=== PATIENT | female | born 1960 | race Hispanic/Latino ===

== ENCOUNTER 2017-09-05 19:47 | Emergency (ER) | payer BC ==
[2017-09-05] MEDS ORDERED: Ondansetron ODT 4 MG TAB ONE (19:59)
[2017-09-05 20:15] LABS: Hemoglobin 13.8 g/dL (12.0-16.0); Mean Corpuscular Hemoglobin 30.7 pg (27.0-31.0); Mean Corpuscular Volume 92.9 fl (81.0-99.0); Mean Platelet Volume 7.4 fL (7.4-10.4); Platelet Count 390 thou/uL (130-400); RBC Distribution Width 12.4 % (11.5-14.5); Red Blood Cell (RBC) Count 4.51 mill/uL (4.20-5.40); White Blood Cell (WBC) Count 14.7 thou/uL (4.8-10.8)
[2017-09-05] MEDS ORDERED: Pantoprazole 40 MG VIAL ONE (20:30)
[2017-09-05 20:34] LABS: Band 2 % (5-11); Eosinophils 1 % (0-10); Lymphocytes 49 % (21-51); MDiff Complete? YES; Monocytes 4 % (0-10); Neutrophil 44 % (42-75); PLT Morphology Comment Appears Adequate
[2017-09-05 20:35] LABS: ALT (SGPT) 53 U/L (8-55); AST (SGOT) 106 U/L (5-34); Albumin 4.7 g/dL (3.5-5.0); Alkaline Phosphatase 110 U/L (40-150); Anion Gap 17 mmol/L (10-20); BUN (Urea Nitrogen) 18 mg/dL (9.8-20.1); Bilirubin, Total 0.3 mg/dL (0.2-1.2); Calc. Creatinine Clearance 0 mL/min (70-130); Calcium 10.6 mg/dL (7.8-10.44); Carbon Dioxide 24 mmol/L (22-29); Chloride 104 mmol/L (98-107); Estimated GFR-MDRD 63; Globulin 3.3 g/dL (2.4-3.5); Glucose 86 mg/dL (70-105); Lipase 36 U/L (8-78); Potassium 3.7 mmol/L (3.5-5.1); Sodium 141 mmol/L (136-145)
== END 2017-09-05 22:38 | disposition home or self-care (01) ==
LOC: ERS 19:47
DX: K22.4 Dyskinesia of esophagus (principal); I10 Essential (primary) hypertension
CPT/HCPCS: 80053; 83690; 85025; 93005; 96374; C9113; Q0162

== ENCOUNTER 2021-12-30 17:55 | Observation (INO) | payer BC ==
[2021-12-30] MEDS ORDERED: Ondansetron PF 4 MG/2 ML Vial ONE (18:08)
[2021-12-30] MEDS ORDERED: Morphine 4 MG/ML VIAL ONE (18:08)
[2021-12-30 18:25] LABS: Hemoglobin 13.9 g/dL (12.0-16.0); Mean Corpuscular HGB CONC 32.7 g/dL (32.0-36.0); Mean Corpuscular Hemoglobin 31.1 pg (27.0-31.0); Mean Corpuscular Volume 95.3 fL (78.0-98.0); Mean Platelet Volume 7.7 fL (7.4-10.4); Platelet Count 318 thou/uL (130-400); RBC Distribution Width 12.1 % (11.5-14.5); Red Blood Cell (RBC) Count 4.46 mill/uL (4.20-5.40); White Blood Cell (WBC) Count 20.9 thou/uL (4.8-10.8)
[2021-12-30 18:40] LABS: Band 2 % (5-11); Eosinophils 3 % (0-10); Lymphocytes 31 % (21-51); MDiff Complete? YES; Monocytes 5 % (0-10); Neutrophil 58 % (42-75); Platelet Morphology Comment Appears Adequate; RBC Morphology Normal
[2021-12-30 18:46] LABS: ALT (SGPT) 19 U/L (8-55); AST (SGOT) 23 U/L (5-34); Albumin 4.8 g/dL (3.4-4.8); Alkaline Phosphatase 92 U/L (40-110); Anion Gap 17 mmol/L (10-20); BUN (Urea Nitrogen) 21 mg/dL (9.8-20.1); Bilirubin, Total 0.3 mg/dL (0.2-1.2); Calc. Creatinine Clearance 0 mL/min (70-130); Calcium 10.2 mg/dL (7.8-10.44); Carbon Dioxide 24 mmol/L (23-31); Chloride 103 mmol/L (98-107); Estimated GFR 58; Glucose 108 mg/dL (80-115); Lipase 59 U/L (8-78); Potassium 3.9 mmol/L (3.5-5.1); Protein, Total 7.8 g/dL (5.8-8.1); Sodium 140 mmol/L (136-145)
[2021-12-30] MEDS ORDERED: Ketorolac Tromethamine 30 MG/ML VIAL ONE (18:52)
[2021-12-30 19:10] LABS: Bacteria/HPF None Seen HPF (None Seen); Bilirubin Negative (Negative); Blood, Urine 3+ (Negative); Clarity Extra Turbid (Clear); Glucose, Urine (Dipstick) Normal (Negative); Ketone, Urine 10 mg/dL (Negative); Leukocyte Negative Leu/uL (Negative); Nitrite Negative (Negative); Protein, Urine (Dipstick) Negative (Neg-Trace); RBC/HPF Greater than 50 HPF (0-3); Specific Gravity, Urine 1.014 (1.002-1.036); Squamous Epithelial None Seen HPF (0-3); Urobilinogen Normal mg/dL (Less than 2)
[2021-12-30] MEDS ORDERED: cefTRIAXone\\ROCEPHIN 1 GM VIAL ONE (19:51)
[2021-12-30] MEDS ORDERED: Tamsulosin HCl 0.4 MG CAP PO SCH (21:00)
[2021-12-30] MEDS ORDERED: Acetaminophen 325 MG TAB PO SCH (21:00)
[2021-12-30] MEDS ORDERED: Ondansetron ODT 4 MG TAB PO PRN (21:07)
[2021-12-30] MEDS ORDERED: Ondansetron PF 4 MG/2 ML Vial IVP PRN (21:07)
[2021-12-30] MEDS ORDERED: Ketorolac Tromethamine 30 MG/ML VIAL IVP PRN (21:10)
[2021-12-30] MEDS ORDERED: Lactated Ringer's 1,000 ML IV SCH (21:15)
[2021-12-30] MEDS: Acetaminophen 500 MG TAB PO SCH ×2 (22:24)
[2021-12-30 22:57] VITALS: BMI 22.6
[2021-12-31] MEDS: Acetaminophen 500 MG TAB PO SCH ×3 (04:32→13:08)
[2021-12-31] MEDS ORDERED: Promethazine HCl 25 MG/ML VIAL IM SCH (04:45)
[2021-12-31] MEDS ORDERED: Promethazine HCl 12.5 MG SUPP PR SCH (05:00)
[2021-12-31] MEDS ORDERED: Morphine 2 MG/ML VIAL SLOW IVP SCH (05:00)
[2021-12-31 06:20] LABS: #Eosinphils 0.1 thou/uL (0.0-0.7); #Lymphocytes 5.1 thou/uL (1.20-3.40); #Monocytes 0.5 thou/uL (0.11-0.59); #Neutrophils 6.1 thou/uL (1.40-6.50); %Basophils 0.3 % (0.0-1.0); %Lymphocytes 43.2 % (21.0-51.0); %Monocytes 4.4 % (0.0-10.0); %Neutrophils 51.1 % (42.0-75.0); Hemoglobin 11.8 g/dL (12.0-16.0); Mean Corpuscular HGB CONC 33.1 g/dL (32.0-36.0); Mean Corpuscular Hemoglobin 31.9 pg (27.0-31.0); Mean Corpuscular Volume 96.3 fL (78.0-98.0); Mean Platelet Volume 7.7 fL (7.4-10.4); Platelet Count 190 thou/uL (130-400); RBC Distribution Width 11.9 % (11.5-14.5); Red Blood Cell (RBC) Count 3.68 mill/uL (4.20-5.40); White Blood Cell (WBC) Count 11.9 thou/uL (4.8-10.8)
[2021-12-31 06:33] LABS: Anion Gap 11 mmol/L (10-20); BUN (Urea Nitrogen) 19 mg/dL (9.8-20.1); Calc. Creatinine Clearance 48 mL/min (70-130); Calcium 8.9 mg/dL (7.8-10.44); Carbon Dioxide 22 mmol/L (23-31); Chloride 110 mmol/L (98-107); Estimated GFR 61; Glucose 101 mg/dL (80-115); Potassium 4.3 mmol/L (3.5-5.1); Sodium 139 mmol/L (136-145)
[2021-12-31] MEDS ORDERED: Losartan 25 MG TAB PO SCH (09:00)
[2021-12-31] MEDS ORDERED: Amlodipine 5 MG TAB PO SCH (09:00)
[2021-12-31] MEDS ORDERED: Magnesium Oxide 250 MG TAB PO SCH (09:00)
[2021-12-31] MEDS ORDERED: Cholecalciferol 1,000 UNITS (25 MCG) TAB PO SCH (09:00)
[2021-12-31 12:14] VITALS: BP 123/71; TEMP 97.5
== END 2021-12-31 15:25 | disposition home or self-care (01) ==
LOC: ERS 17:55 → T4-A 20:47
PROVIDERS: ADMIT Family Medicine; ATTEND Family Medicine
DX: N13.2 Hydronephrosis with renal and ureteral calculous obstruction (principal); D72.829 Elevated white blood cell count, unspecified; I10 Essential (primary) hypertension; K21.9 Gastro-esophageal reflux disease without esophagitis; E78.5 Hyperlipidemia, unspecified; Z79.899 Other long term (current) drug therapy
CPT/HCPCS: 36415; 74176; 80048; 80053; 81003; 81015; 83690; 85025; 87086; 96361; 96365; 96375; 96376; G0378; J0696; J1885; J2270; J2405; J7120

== ENCOUNTER 2022-03-13 09:04 | Outpatient (CLI) | payer BC ==
[2022-03-13] MEDS ORDERED: Iopamidol 370 76% 100 ML VIAL ONE (11:11)
== END 2022-03-13 09:05 | disposition home or self-care (01) ==
LOC: CT 09:04
PROVIDERS: ATTEND Urology
DX: R31.9 Hematuria, unspecified (principal); N13.2 Hydronephrosis with renal and ureteral calculous obstruction; K80.20 Calculus of gallbladder without cholecystitis without obstruction; K63.89 Other specified diseases of intestine
CPT/HCPCS: 74178; 82565; Q9967

== ENCOUNTER 2024-02-18 11:40 | Outpatient (CLI) | payer BC | END 2024-02-18 11:41 | disposition home or self-care (01) | LOC: BICRAD 11:40 | PROVIDERS: ATTEND Family Medicine | DX: J20.9 Acute bronchitis, unspecified (principal) | CPT/HCPCS: 71046 ==